=== PATIENT | female | born 1995 | race African-American/Black ===

== ENCOUNTER 2017-10-18 08:05 | Emergency (ER) | payer SELFPAY ==
[2017-10-18 08:18] VITALS: BP 128/57; PULSE 78; RESP 20; TEMP 98.5; O2SAT 100
[2017-10-18] MEDS ORDERED: FEXO1TAB97 PO (09:36)
[2017-10-18] MEDS ORDERED: FLUT50SP EACH NARE (09:36)
--- NOTE | 2017-10-18 09:36 | PD ---
HPI Chief Complaint: Cold / Flu Symptoms Time Seen by Provider: 09:33 Travel History International Travel<30 days: No Contact w/Intl Traveler<30days: No Traveled to known affect area: No History of Present Illness HPI 22-year-old female presents to the ED for evaluation of one month history of watery, reddened eyes, sneezing, sinus congestion, rhinorrhea, nonproductive cough. Patient denies ear pain, sore throat, fever, chills, shortness of breath. She states she is only been living in the [facility] area since July. She denies history of seasonal allergies. She treated with several OTC medications with no improvement of symptoms. PFSH Past Medical History ?: Not Social History Tobacco Use: No Allergies-Medications (Allergen,Severity, Reaction): Coded Allergies: No Known Allergies (Unverified , 10/18/17) Reported Meds & Prescriptions Reported Meds & Active Scripts Active Cindy-D 24 Hour Allergy (Fexofenadine-Pseudoephedrine ER 24 HR) 180-240 Wanda 1 Tab PO DAILY Fluticasone Nasal [place] 50 Mcg/Act Naspr 100 Mcg EACH NARE BID 30 Days 50 mcg/spray Review of Systems Except as stated in HPI: all other systems reviewed are Neg Physical Exam Narrative GENERAL: Well-nourished, well-developed obese female AA in no acute distress. SKIN: Warm and dry. HEAD: Normocephalic. Atraumatic. EYES: No scleral icterus. No injection or drainage. PERRLA. EOMI. ENT: Pearly spivey tympanic membranes bilaterally. Nasal mucosa is moist, bluish , boggy. Oropharynx mild posterior erythema and cobblestoning. Uvula midline. Airway patent. No exudates or edema. CARDIOVASCULAR: Regular rate and rhythm without murmurs, gallops, or rubs. RESPIRATORY: Breath sounds clear and equal bilaterally. No accessory muscle use. GASTROINTESTINAL: Abdomen soft, non-tender, nondistended. + Bowel sounds MUSCULOSKELETAL: No cyanosis, or edema. BACK: Nontender without obvious deformity. No CVA tenderness. Data Data Last Documented VS Vital Signs Date Time Temp Pulse Resp B/P (MAP) Pulse Ox O2 Delivery O2 Flow Rate FiO2 10/18/17 08:18 98.5 78 20 128/57 (80) 100 Orders Orders Influenzae A/B Antigen (10/18/17 08:20) Ed Discharge Order (10/18/17 09:46) [facility] Medical Decision Making Medical Screen Exam Complete: Yes Emergency Medical Condition: Yes Differential Diagnosis Allergic rhinitis versus upper airway cough syndrome versus viral syndrome versus other Narrative Course 22-year-old female presents to the ED for evaluation of one month history of watery, reddened eyes, sneezing, sinus congestion, rhinorrhea, nonproductive cough. Patient denies ear pain, sore throat, fever, chills, shortness of breath. She states she is only been living in the [facility] since July. She denies history of seasonal allergies. Vitals reviewed. Patient afebrile on presentation. On exam the patient has bluish, boggy nasal mucosa as well as posterior cobblestoning. Signs and symptoms insistent with allergic rhinitis. Patient's prescribed fluticasone 2 puffs each nostril twice a day, Cindy-D. She is instructed to isolate from known allergens, take medications as prescribed, follow with ENT. She indicated understanding of instructions and is agreeable the care plan. She is stable and discharged home. Diagnosis Primary Impression: Allergic rhinitis Qualified Codes: J30.9 - Allergic rhinitis, unspecified Referrals: Ear / Nose / Throat Specialist Additional Instructions: Rest, hydrate. Avoid allergens as possible. Use Cindy-D daily as prescribed. Use fluticasone 2 puffs in each nostril every day as prescribed. Follow-up with the faculty research assistant. Return to the ED for worsening symptoms or any urgent or emergent medical condition. Med/Other Pt SpecificInfo: Prescription(s) given Scripts Fexofenadine-Pseudoephedrine ER 24 HR (Cindy-D 24 Hour Allergy) 180-240 Wanda 1 TAB PO DAILY for Allergy Management, #30 TAB 0 Refills Prov: Libia Duvall MD 10/18/17 Fluticasone Nasal [place] (Fluticasone Nasal [place]) 50 Mcg/Act Naspr 100 MCG EACH NARE BID for Allergy Management for 30 Days, #1 BOTTLE 0 Refills 50 mcg/spray Prov: Libia Duvall MD 10/18/17 Disposition: 01 DISCHARGE HOME Condition: Stable Monique De Paz Oct 18, 2017 09:36
== END 2017-10-18 10:31 | disposition home or self-care (01) ==
LOC: NEPK 08:05
DX: J30.9 Allergic rhinitis, unspecified (principal)
CPT/HCPCS: 87804; 99283